=== PATIENT | male | born 1985 | race Caucasian/White ===

== ENCOUNTER 2020-09-28 11:55 | Emergency (ER) | payer SELFPAY ==
--- NOTE | 2020-09-28 12:21 | ER Document Report ---
ED Medical Screen (RME) - General Chief Complaint: Psych Problem Stated Complaint: PSYCH EVAL Time Seen by Provider: 09/28/20 12:17 Mode of Arrival: Ambulatory Information source: Patient Notes: Patient is a 34-year-old male with history of behavioral health problems. He is not taking his medicines currently. He is having visual and auditory hallucinations. He is also having suicidal ideations. Apparently was going to try to strangle himself with a neck tie. General exam no acute distress Pulmonary no respiratory distress Psychiatric flat affect, cooperative I have greeted and performed a rapid initial assessment of this patient. A comprehensive ED assessment and evaluation of the patient, analysis of test results and completion of the medical decision making process will be conducted by additional ED providers. Physical Exam - Vital signs Vitals: Temp Pulse Resp BP Pulse Ox 98.2 F 105 H 18 136/60 H 99 09/28/20 12:00 09/28/20 12:00 09/28/20 12:00 09/28/20 12:00 09/28/20 12:00 Course - Vital Signs Vital signs: Temp Pulse Resp BP Pulse Ox 98.2 F 105 H 18 136/60 H 99 09/28/20 12:00 09/28/20 12:00 09/28/20 12:00 09/28/20 12:00 09/28/20 12:00
[2020-09-28 13:03] LABS: ABSOLUTE EOSINOPHILS # (AUTO) 0.2 10^3/uL (0.0-0.6); ABSOLUTE MONOCYTES (AUTO) 0.5 10^3/uL (0.1-1.4); ABSOLUTE NEUT (AUTO) 3.9 10^3/uL (1.7-8.2); BASOPHILS % (AUTO) 0.7 % (0-2); EOSINOPHILS % (AUTO) 3.2 % (0-6); HEMATOCRIT 39.2 % (37.9-51.0); HEMOGLOBIN 13.2 g/dL (13.5-17.0); LYMPHOCYTES % (AUTO) 30.1 % (13-45); MEAN CORPUSCULAR HEMOGLOBIN 26.7 pg (27.0-33.4); MEAN CORPUSCULAR HGB CONC 33.7 g/dL (32.0-36.0); MEAN CORPUSCULAR VOLUME 79 fl (80-97); PLATELET COUNT 318 10^3/uL (150-450); RED BLOOD COUNT 4.95 10^6/uL (4.35-5.55); RED CELL DISTRIBUTION WIDTH 19.1 % (11.5-14.0); TOTAL CELLS COUNTED % (AUTO) 100 %; WHITE BLOOD COUNT 6.5 10^3/uL (4.0-10.5)
[2020-09-28 13:08] LABS: APPEARANCE,URINE SLIGHTLY-CLOUDY; BILIRUBIN,URINE SMALL (NEGATIVE); COLOR,URINE AMBER; GLUCOSE, URINE NEGATIVE (NEGATIVE); KETONES,URINE TRACE mg/dL (NEGATIVE); LEUKOCYTE ESTERASE,URINE NEGATIVE (NEGATIVE); NITRITE,URINE NEGATIVE (NEGATIVE); PROTEIN,URINE 30 mg/dL (NEGATIVE); URINE SPECIFIC GRAVITY 1.027
[2020-09-28 13:21] LABS: ALBUMIN 5.1 g/dL (3.5-5.0); ALKALINE PHOSPHATASE 120 U/L (38-126); ANION GAP 13 (5-19); ASPARTATE AMINO TRANSFERASE 90 U/L (17-59); BILIRUBIN,DIRECT 0.1 mg/dL (0.0-0.4); BILIRUBIN,TOTAL 0.9 mg/dL (0.2-1.3); BLOOD UREA NITROGEN 12 mg/dL (7-20); CALCIUM 10.2 mg/dL (8.4-10.2); CARBON DIOXIDE 23 mmol/L (22-30); CHLORIDE 104 mmol/L (98-107); GLUCOSE 110 mg/dL (75-110); TOTAL PROTEIN 8.4 g/dL (6.3-8.2); URINE BARBITURATES SCREEN NEGATIVE; URINE BENZODIAZEPINES SCREEN NEGATIVE; URINE COCAINE SCREEN NEGATIVE; URINE MARIJUANA (THC) SCREEN NEGATIVE; URINE METHADONE SCREEN NEGATIVE; URINE PHENCYCLIDINE SCREEN NEGATIVE
[2020-09-28 13:23] LABS: ACETAMINOPHEN < 10 ug/mL (10-30); ALCOHOL < 10 mg/dL (NONE DETECTED); SALICYLATE < 1.0 mg/dL (2.0-20.0)
--- NOTE | 2020-09-28 13:50 | ER Document Report ---
Entered by MIGUEL MCMAHON SCRIBE 09/28/20 1252 Acting as scribe for:NIKA MACKEY MD ED Psych Disorder / Suicide <KAYLA FARIAS - Last Filed: 09/28/20 14:24> - General Mode of Arrival: Ambulatory Information source: Patient - Related Data Home Medications: pt has not taken meds in months <NIKA MACKEY - Last Filed: 09/28/20 17:55> - General Chief Complaint: Psych Problem Stated Complaint: PSYCH EVAL Time Seen by Provider: 09/28/20 12:17 Primary Care Provider: [facility] [Outside] - Follow up as needed (Voluntary bed reservation for 1500/3:00PM.) Notes: This 34 year old male patient with known major depressive disorder with psychotic features as well as borderline personality disorder presents to the emergency department today with complaints of being off of his psychiatric medication for the last two months. Patient is visiting the area with his partner and another friend. Patient states for the last few days he has had visual hallucinations, stating he sees shadows and figures, and is hearing noises but denies hearing any voices. Patient reports that the visual hallucinations got worse today which is why he decided to come in. Patient has been off of his psychiatric medications for an extended period of time due to no health insurance. Patient mentions that he put a neck tie around his neck toda y and tried to tie it but what was stopped by his partner. (NIKA MACKEY) - Related Data Allergies/Adverse Reactions: No Known Allergies Allergy (Verified 09/28/20 12:27) Past Medical History - General Information source: Patient - Social History Smoking Status: Current Every Day Smoker Cigarette use (# per day): Yes - 1/4 ppd Chew tobacco use (# tins/day): No Frequency of alcohol use: Occasional Drug Abuse: None Occupation: unemployed Lives with: Spouse/Significant other Family History: Reviewed & Not Pertinent Patient has homicidal ideation: No Endocrine Medical History: Reports: Hx Hypothyroidism Psychiatric Medical History: Reports: Hx Borderline Personality Disorder, Hx Depression Past Surgical History: Reports: Hx Gastric Bypass Surgery - [facility] 2004, Hx Orthopedic Surgery - Laminectomy, discectomy <NIKA MACKEY - Last Filed: 09/28/20 17:55> Review of Systems - Review of Systems Constitutional: No symptoms reported EENT: No symptoms reported Cardiovascular: No symptoms reported Respiratory: No symptoms reported Gastrointestinal: No symptoms reported Genitourinary: No symptoms reported Male Genitourinary: No symptoms reported Musculoskeletal: No symptoms reported Skin: No symptoms reported Hematologic/Lymphatic: No symptoms reported Neurological/Psychological: See HPI, Hallucinations, Suicidal ideation -: Yes All other systems reviewed and negative <NIKA MACKEY - Last Filed: 09/28/20 17:55> Physical Exam <NIKA MACKEY - Last Filed: 09/28/20 17:55> - Vital signs Vitals: Temp Pulse Resp BP Pulse Ox 98.2 F 105 H 18 136/60 H 99 09/28/20 12:00 09/28/20 12:00 09/28/20 12:00 09/28/20 12:00 09/28/20 12:00 - Notes Notes: Physical Exam: General: Alert. HEENT: Normocephalic. Atraumatic. PERRL. Extraocular movements intact. Oropharynx clear. Neck: Supple. Non-tender. Respiratory: No respiratory distress. Clear and equal breath sounds bilaterally. Cardiovascular: Regular rate and rhythm. Abdominal: Obese. Non-tender. No distension. Normal Bowel Sounds. Back: No gross abnormalities. Extremities: Moves all four extremities. Upper extremities: Normal inspection. Normal ROM. Lower extremities: Normal inspection. No edema. Normal ROM. Neurological: Normal cognition. AAOx4. Normal speech. Psychological: Flat affect. Skin: Warm. Dry. Normal color. (NIKA MACKEY) Course - Laboratory Result Diagrams: 09/28/20 12:45 09/28/20 12:45 <KAYLA FARIAS - Last Filed: 09/28/20 14:24> - Laboratory Result Diagrams: 09/28/20 12:45 09/28/20 12:45 - EKG Interpretation by [facility] EKG shows normal: Sinus rhythm, Cartwright, Intervals, QRS Complexes, ST-T Waves Rate: Normal - 91 Rhythm: NSR <NIKA MACKEY - Last Filed: 09/28/20 17:55> - Vital Signs Vital signs: Temp Pulse Resp BP Pulse Ox 98.2 F 89 18 123/96 H 99 09/28/20 14:59 09/28/20 14:59 09/28/20 14:59 09/28/20 14:59 09/28/20 14:59 - Laboratory Laboratory results interpreted by me: 09/28/20 09/28/20 09/28/20 12:45 12:45 12:45 Hgb 13.2 L MCV 79 L MCH 26.7 L RDW 19.1 H AST 90 H ALT 58 H Total Protein 8.4 H Albumin 5.1 H Urine Protein 30 H Urine Ketones TRACE H Urine Bilirubin SMALL H Urine Urobilinogen 4.0 H Salicylates < 1.0 L Acetaminophen < 10 L Discharge <DINORAKAYLA - Last Filed: 09/28/20 14:24> <NIKA MACKEY - Last Filed: 09/28/20 17:55> - Discharge Clinical Impression: Hallucinations, Suicidal behavior, Family history of borderline personality disorder, History of anxiety, History of depression, Methamphetamine abuse Condition: Stable Disposition: HOME, SELF-CARE Additional Instructions: You have been evaluated by both medical and behavioral health teams for hallucinations of seeing and hearing people that are trying to hurt you, as a result tied a neck tie around your neck, with history of Borderline Personality Disorder/Anxiety/Depression, and Methamphetamine Use. You have been deemed appropriate for discharge. While in the emergency department you received the following services/or had access to: Medical screening and assessment, nursing s ervices, dietary services, pharmacological services, one-on-one counseling and/or psychotherapy, environmental services, and continuous observation by a patient aviation safety technician. You gave verbal consent to link and make voluntary inpatient referral to [facility]. They have reserved a bed for you at 1500/3:00PM. AMPHETAMINE / METHAMPHETAMINE ABUSE: Amphetamines are addicting stimulants. Amphetamines overstimulate the nervous system and give a false feeling of power and mastery. These drugs may be obtained as prescription pills for weight loss, narcolepsy, or attention-deficit disorder. More often they're bought as an illegal street drug, methamphetamine (crank, crystal, speed). Using amphetamines repeatedly can lead to serious medical problems including malnutrition, severe depression, and paranoia. It can take increasing amounts to feel good. Eventually, there will be a "burn out." When you go off amphetamines there is a period of depression that may last for weeks or even months. High doses of amphetamines can cause seizures, confusion, hallucinations, delusions, high blood pressure, muscle damage, heart damage, or sudden . Many times these deadly complications occur even with "normal" doses. Injection of amphetamines is risky for developing abscesses, endocarditis (heart infection), pneumonia, and AIDS. Withdrawal from amphetamines often causes anxiety, depression, and drug cravings. Some users become paranoid and psychotic. There may be cramps, nausea, and vomiting. Many treatment programs are available, but you must make the decision to quit. Medication can be prescribed to control the symptoms of amphetamine toxicity (beta blockers or benzodiazepines). Withdrawal symptoms may require tranquilizers. Hallucinations (methamphetamine can cause such symptoms) You seem to be having hallucinations. Hallucinations are seeing, hearing, or feeling things that don't exist. These symptoms commonly occur with drug abuse and schizophrenia. Drugs like PCP, LSD, MDMA, peyote, and "psychedelic mushrooms" can cause frightening hallucinations. Users of methamphetamine or crack cocaine often see and feel bugs crawling on their skin. Patients with schizophrenia may hear voices that no one else can hear. The delusions of schizophrenia often involve conspiracies or relationships that are not real. When symptoms are due to drug abuse, the mental state usually improves as the drug wears off. Someone you trust should be with you until you are better, to protect you and calm your fears. Tranquilizer medicine is helpful at controlling hallucinations, anxiety, and deluded thoughts. Get a proper diet and enough sleep. Most patients do very well when they get proper medical treatment and social support. You should return at once if your symptoms get worse, if you are having suicidal thoughts or thoughts about hurting others, or if you feel that you are in danger. DEPRESSION: Your evaluation reveals that you have mental depression. While symptoms may be vague, they often include disturbance of sleep, fatigue, loss of appetite, and general loss of interest in life. While depression may be a side effect of drugs, or a reaction to a major change in your life, many cases have no known cause. If depression is acute, and related to a major loss in your life, you can expect it to clear completely with time. If you have been depressed a long time, are prone to repeated bouts of depression or low mood, or have been thinki ng of suicide, get help. Depression can be treated with anti-depressant medication and counselling. Long-term depression will often take a few weeks to clear, even with appropriate medication. Follow-up care is important. SUICIDAL IDEATION: Suicidal ideation is a common medical term for thoughts about suicide, which may be as detailed as a formulated plan, without the suicidal act itself. Although most people who undergo suicidal ideation do not commit suicide, some go on to make suicide attempts. The range of suicidal ideation varies greatly from fleeting to detailed planning, role playing, and unsuccessful attempts. While thoughts about suicide are common, most people do not carry out serious actions to commit suicide. Based upon your evaluation and discussion with you, we do not believe you are currently at risk to act upon your thoughts of suicide. You have agreed to return to the Emergency Department, at any time, if you feel inclined to act upon your suicidal thoughts. FOLLOW-UP CARE: [facility] has a bed reserved for you at 1500/3:00PM for screening. You are recommended to go directly to [facility] upon discharge from the emergency department. If you experience worsening or a significant change in your symptoms notify your physician immediately, tell [facility] staff or return to the Emergency Department at any time for re-evaluation. FOLLOW-UP CARE: If you have been referred to a physician for follow-up care, call the physicians office for an appointment as you were instructed or within the next two days. If you experience worsening or a significant change in your symptoms, notify the physician immediately or return to the Emergency Department at any t norberto for re-evaluation. Referrals: [facility] [Outside] - Follow up as needed (Voluntary bed reservation for 1500/3:00PM.) I personally performed the services described in the documentation, reviewed and edited the documentation which was dictated to the scribe in my presence, and it accurately records my words and actions.
--- NOTE | 2020-09-28 14:55 | EKG REPORT ---
SEVERITY:- NORMAL ECG - SINUS RHYTHM : Confirmed by: Stoney Young MD 28-Sep-2020 14:54:42
[2020-09-28 14:59] VITALS: BP 123/96
== END 2020-09-28 15:00 | disposition home or self-care (01) ==
LOC: ER 11:55
DX: F32.3 Major depressive disorder, single episode, severe with psychotic features (principal); F60.3 Borderline personality disorder; F15.10 Other stimulant abuse, uncomplicated; R45.851 Suicidal ideations; F17.210 Nicotine dependence, cigarettes, uncomplicated; Z91.14 Patient's other noncompliance with medication regimen; Z86.59 Personal history of other mental and behavioral disorders; Z81.8 Family history of other mental and behavioral disorders
CPT/HCPCS: 36415; 80053; 80307; 81001; 85025; 93005; 93010; 99285